=== PATIENT | male | born 1965 | race African-American/Black ===

== ENCOUNTER 2022-02-16 11:26 | Emergency (ER) | payer OTHER ==
[2022-02-16 11:37] VITALS: BP 115/74; PULSE 76; RESP 18; TEMP 97.9; BMI 27.4
[2022-02-16] MEDS ORDERED: LIDOCAINE 5% TOPICAL PATCH TP ONE (13:36)
[2022-02-16] MEDS ORDERED: ACETAMINOPHEN 325 MG TABLET (FP) PO ONE (13:36)
[2022-02-16] MEDS ORDERED: KETOROLAC TROMETHAMINE 15 MG/ML VIAL IM ONE (13:36)
[2022-02-16] MEDS ORDERED: LIDOCAINE 5% TOPICAL PATCH ONE (13:41)
[2022-02-16] MEDS ORDERED: ACETAMINOPHEN 325 MG TABLET (FP) ONE (13:41)
[2022-02-16] MEDS ORDERED: KETOROLAC TROMETHAMINE 15 MG/ML VIAL ONE (13:41)
[2022-02-16] MEDS ORDERED: LIDOCAINE PATCH REMOVAL MC ONE (22:00)
== END 2022-02-16 15:53 | disposition home or self-care (01) ==
LOC: JERFT 11:26 → JER 11:26 → JERFT 15:53
PROC: 3E023GC Introduction of Other Therapeutic Substance into Muscle, Percutaneous Approach (ICD-10-PCS; principal; 2022-02-16)
DX: M54.50 Low back pain, unspecified (principal)
CPT/HCPCS: 72110-TC-FY; 99284-25